=== PATIENT | female | born 1950 | race Asian ===

== ENCOUNTER → 2023-07-10 15:11 | Outpatient (REF) | payer MEDICARE, OTHER, SELFPAY | LOC: RAD 15:11 | PROVIDERS: ATTENDING PHYSICIAN Nuclear Medicine Nuclear Cardiology; FAMILY PHYSICIAN Family Medicine | DX: I48.0 Paroxysmal atrial fibrillation (principal) | CPT/HCPCS: 71046 ==

== ENCOUNTER → 2023-09-06 11:06 | Outpatient (REF) | payer MEDICARE, OTHER, SELFPAY | LOC: RAD 11:06 | PROVIDERS: ATTENDING PHYSICIAN Surgery Vascular Surgery; FAMILY PHYSICIAN Family Medicine | DX: I77.0 Arteriovenous fistula, acquired (principal) | CPT/HCPCS: 93990 ==

== ENCOUNTER → 2024-01-08 10:51 | Outpatient (REF) | payer MEDICARE, OTHER, SELFPAY | LOC: RAD 10:51 | PROVIDERS: ATTENDING PHYSICIAN Surgery Vascular Surgery; FAMILY PHYSICIAN Family Medicine | DX: I77.0 Arteriovenous fistula, acquired (principal) | CPT/HCPCS: 93990 ==

== ENCOUNTER 2024-02-07 06:06 | Day surgery (SDC) | payer MEDICARE, OTHER, SELFPAY ==
--- NOTE | 2024-01-31 08:25 | PTCARENOTE ---
Preop EKG scanned by office dated 11/15/[address] depression. Please see EKG in MAR from 03/09/23 noting history of that.
[2024-02-07] VITALS (8 sets, daily range): BP systolic 10–180; BP diastolic 54–67; BMI 28.0
[2024-02-07 06:54] LABS: Glucose - Point of Care 138 mg/dl (70-99)
[2024-02-07 07:03] LABS: APTT 32.7 Sec (23.4-35.0)
--- NOTE | 2024-02-07 07:09 | W.SUR.PREOP ---
Pre-Operative Surgical Note
-
I have examined this patient prior to the performance of the scheduled procedure.
The patient's condition is unchanged from the time of the current History and
Physical and the patient is able to undergo the scheduled procedure.
Offered human resources mgr services. Patient declined. Prefers her son to translate. Discussed with them likely prolonged bleeding after hemodialysis. Discussed left upper extremity fistulogram (she has had several in the past). Discussed procedure
again. Discussed risks including but limited to bleeding, infection, thrombotic complications. She understands all wishes to proceed.
[2024-02-07 07:16] LABS: INR 1.01; PT 13.3 Sec (11.4-14.6)
[2024-02-07 07:21] LABS: Hematocrit 34.4 % (37.0-47.0); Hemoglobin 11.9 g/dL (12.0-16.0); Mean Corp Hgb Conc. 34.6 g/dL (33.0-37.0); Mean Corpuscular Volume 92.5 fL (81.0-99.0); Mean Platelet Volume 10.2 fL (7.4-10.4); Platelet Count 129 10^3/uL (130-400); Red Blood Cell Count 3.72 10^6/uL (4.20-5.40); Red Cell Dist. Width 14.4 % (11.5-14.5); White Blood Cell Count 4.4 10^3/uL (4.8-10.8)
[2024-02-07] MEDS: NSS 500 IV (07:28)
[2024-02-07 07:40] LABS: Blood Urea Nitrogen 29 mg/dl (7-17); Calcium 9.1 mg/dl (8.4-10.2); Carbon Dioxide 32 mmol/L (22-30); Chloride 90 mmol/L (98-107); Estimated Creatinine Clearance 10 ml/min; Glucose 129 mg/dl (70-99); Potassium 3.8 mmol/L (3.5-5.1); Sodium 137 mmol/L (135-145); eGFR 10.27
--- NOTE | 2024-02-07 08:26 | W.SUR.POST ---
Surgical Immediate Post Op
Note
Pre Op Diagnosis: ESRD
Post Op Diagnosis: same
Procedure Performed: LUE fistulagram, central venogram, balloon angioplasty outflow vein edge stent stenosis
Primary Surgeon: Osvaldo
Anesthesia: local and sedation
Estimated Blood Loss: <2cc
Fluids: see anesthesia flow sheet
Drains/Shunts: none
Specimens/Cultures: none
Doppler/Duplex/Angio (Y/N): Y
Complications: none
Operative Findings: +thrill
[2024-02-07 08:52] LABS: Glucose - Point of Care 116 mg/dl (70-99)
--- NOTE | 2024-02-07 10:45 | OR.RPT ---
Operative Report
Operative Report
PROCEDURE DATE: 02/07/2024
Preoperative diagnosis:
1. End-stage renal disease on hemodialysis.
2. Prolonged bleeding after hemodialysis, concern for outflow vein stenosis.
Postoperative diagnosis: Same
Procedure:
1. Duplex assisted cannulation of left upper extremity fistula in a central facing direction.
2. Left upper extremity fistulogram and central venogram.
3. Balloon angioplasty of stent edge stenosis with 8 mm angioplasty balloon.
4. Supervision and interpretation.
Surgeon: Osvaldo
Records Management Assistant: None
Complications: None
Anesthesia: Local, sedation
Fluoroscopy:
2.4 min
11 mGy
2.69 Gy.cm2
Indications for procedure:
Prolonged bleeding after hemodialysis. Duplex demonstrated possible outflow/stent stenosis. Risk/benefits/alternatives of fistulogram were fully discussed. Patient understood all wish to proceed.
Description of procedure:
Patient was identified, brought to the operating room. Placed on the table in the supine position. After the adequate administration of anesthesia, the patient was prepped and draped in the standard surgical fashion. A standard preoperative
timeout was undertaken and everybody was in agreement with the plan.
Left upper extremity arteriovenous fistula outflow vein was punctured with a micropuncture kit in the distal upper arm just proximal antecubital fossa under direct duplex ultrasound guidance. A 5 Green[place]ic sheath was then advanced over a 0.035 inch
wire. Left upper extremity fistulogram and central venogram demonstrated patent left upper extremity fistula. As was obvious on exam, there was a large aneurysmal portion in the mid to distal upper arm. Remainder of the outflow vein was patent on
initial fistulogram with no stenosis. The stent appeared grossly patent. However, at this point I advanced a flopping of hydrophilic wire and then a glide catheter to the edge of the stent. Angiogram completed here demonstrated actually a severe
edge stenosis at the proximal edge of the stent. I therefore then used a flopping of hydrophilic wire to gain central venous access and then passed my catheter and exchanged for a 0.035 inch Storq wire. I then performed balloon angioplasty of the
stent and stent edge stenosis with an 8 mm angioplasty balloon (after upsizing to a 6 Green[place]ic sheath). Completion angiogram now demonstrated excellent result with no evidence of residual stenosis. I then withdrew my catheters and wires and
compressed the fistula outflow and performed a fistulogram to reflux contrast across the arterial anastomosis which demonstrated widely patent arterial anastomosis. At this point I was very satisfied. Wires and catheters had been withdrawn. A 4-0
Monocryl pursestring stitch was placed around the sheath entry site. This was tied down as the sheath was withdrawn. Manual pressure was also applied to the puncture site. Hemostasis was fully achieved.
The patient tolerated procedure well.
== END 2024-02-07 10:10 | disposition home or self-care (01) ==
LOC: CATH 06:06
PROVIDERS: ATTENDING PHYSICIAN Surgery Vascular Surgery; FAMILY PHYSICIAN Family Medicine; OTHER PHYSICIAN Nuclear Medicine Nuclear Cardiology
DX: T82.858A Stenosis of other vascular prosthetic devices, implants and grafts, initial encounter (principal); T82.838A Hemorrhage due to vascular prosthetic devices, implants and grafts, initial encounter; Y83.2 Surgical operation with anastomosis, bypass or graft as the cause of abnormal reaction of the patient, or of later complication, without mention of misadventure at the time of the procedure; I13.2 Hypertensive heart and chronic kidney disease with heart failure and with stage 5 chronic kidney disease, or end stage renal disease; E11.22 Type 2 diabetes mellitus with diabetic chronic kidney disease; N18.6 End stage renal disease; I50.32 Chronic diastolic (congestive) heart failure; Z99.2 Dependence on renal dialysis; Z79.4 Long term (current) use of insulin; Z79.82 Long term (current) use of aspirin; Z79.899 Other long term (current) drug therapy; Z79.890 Hormone replacement therapy
CPT/HCPCS: 36902; 76937; 80048; 82962; 85027; 85610; 85730; 86850; 86900; 86901; C1725; C1769; C1894; Q9967

== ENCOUNTER → 2024-04-24 13:59 | Outpatient (REF) | payer MEDICARE, OTHER, SELFPAY | LOC: RAD 13:59 | PROVIDERS: ATTENDING PHYSICIAN Family Medicine | DX: M25.569 Pain in unspecified knee (principal) | CPT/HCPCS: 73564 ==

== ENCOUNTER → 2024-06-05 14:55 | Outpatient (REF) | payer MEDICARE, OTHER, SELFPAY | LOC: RAD 14:55 | PROVIDERS: ATTENDING PHYSICIAN Family Medicine; FAMILY PHYSICIAN Family Medicine | DX: M25.569 Pain in unspecified knee (principal); R53.1 Weakness; M79.604 Pain in right leg; M79.605 Pain in left leg | CPT/HCPCS: 93925 ==

== ENCOUNTER 2024-08-08 06:48 | Inpatient (IN) | payer MEDICARE, OTHER, SELFPAY ==
[2024-08-07] VITALS (11 sets, daily range): BP systolic 164–186; BP diastolic 55–65; BMI 27.7; BMI 26.9
[2024-08-07 14:44] LABS: % Basophils 0.7 % (0-2); % Eosinophils 2.2 % (0-6); % Immature Granulocytes 0.4 % (0-0.5); % Lymphocytes 20.1 % (20.5-51.1); % Neutrophils 63.6 % (42.2-75.2); Absolute Eosinophils 0.1 10^3/uL (0-0.7); Absolute Lymphocytes 1.1 10^3/uL (1.2-3.4); Absolute Monocytes 0.7 10^3/uL (0.1-0.6); Absolute Neutrophils 3.5 10^3/uL (1.4-6.5); Hematocrit 21.4 % (37.0-47.0); Hemoglobin 7.3 g/dL (12.0-16.0); Mean Corp Hgb Conc. 34.1 g/dL (33.0-37.0); Mean Corpuscular Hgb 32.2 pg (27.0-31.0); Mean Corpuscular Volume 94.3 fL (81.0-99.0); Mean Platelet Volume 9.5 fL (7.4-10.4); Nucleated Red Blood Cells % 0 %; Platelet Count 166 10^3/uL (130-400); Red Blood Cell Count 2.27 10^6/uL (4.20-5.40); Red Cell Dist. Width 13.7 % (11.5-14.5); White Blood Cell Count 5.5 10^3/uL (4.8-10.8)
[2024-08-07 16:00] LABS: ALT (SGPT) 96 U/L (0-35); AST (SGOT) 80 U/L (14-36); Albumin 3.7 g/dl (3.5-5.0); Alkaline Phosphatase 155 U/L (38-126); Blood Urea Nitrogen 27 mg/dl (7-17); Calcium 8.6 mg/dl (8.4-10.2); Carbon Dioxide 33 mmol/L (22-30); Chloride 87 mmol/L (98-107); Glucose 186 mg/dl (70-99); Potassium 3.9 mmol/L (3.5-5.1); Sodium 129 mmol/L (135-145); Total Bilirubin 0.5 mg/dl (0.2-1.3); eGFR 9.47
--- NOTE | 2024-08-07 16:09 | ED.GENMED ---
History of Present Illness
<Gardenia Berkowitz PA-C - Last Filed: 08/07/24 19:17>
General
Chief Complaint: Abnormal Lab Value
Source: patient
Exam Limitations: none
Time Seen by Provider: 08/07/24 13:13
Nursing documentation reviewed up to this point in time: agreed with
History of Present Illness
History of Present Illness:
pt is a 73 y/o F with h/o afib, CHF, GI bleed, ESRD on HD m/w/f
2-3 weeks more weakness/fatigue per family who is translating
son stakes care of her
says she is pretty weak when she gets up
she is not SOB or having chest pain, leg swelling, fever/chills
she didn't eat muhc today
lasst dialyzed yesterday
had labs and resulted today with hg of 6.5 and [facility] wanted her to be transfused before she has dialysis tomorrow
pt here other than feelig tired has no complaints
no bleeding from anywhere, stool, urine (makes very little), gums, etc
no vomiting
Past History
<Gardenia Berkowitz PA-C - Last Filed: 08/07/24 19:17>
Past History
ED Past Medical History: Arrthythmia, IDDM, Renal failure, Hypothyroidism and Other (Anemia/hepatitis B)
ED Past Surgical History: Other
Patient has exhibited threatening behavior?: No
Social History
Tobacco: Non-smoker
Living: with family
Employment: Not employed
Family History
Family History: Other (Noncontributory)
Review of Systems
<Gardenia Berkowitz PA-C - Last Filed: 08/07/24 19:17>
Review of Systems
Allergies reviewed?: Yes
All Other Systems: Not applicable
Phy Exam
<Gardenia Berkowitz PA-C - Last Filed: 08/07/24 19:17>
Physical Exam
Physical Exam:
GENERAL: Alert , in no apparent distress
EYE: pupils equal and reactive, pale
NECK: Supple
ENT: o/p clr, mmm.
CARDIAC: Regular rate and rhythm . sublte murmur
LUNGS: Clear breath sounds bilaterally, no acute respiratory distress, no wheezes/rales/rhonchi
ABDOMEN: Soft, without focal tenderness, no r/g, no cvat, normal bowel sounds
HEME NEG LIGHT STOOL
NEUROLOGICAL: Alert and oriented, no focal neuro deficits
SKIN: Warm and dry, skin intact.
MUSCULOSKELETAL: No edema, well perfused. neg aster's sign
PSYCH: Normal and appropriate interaction.
Course
<Gardenia Berkowitz PA-C - Last Filed: 08/07/24 19:17>
Orders/Labs/Results
Orders:
Orders
08/07/24 14:34
Type And Crossmatch [Type+Screen] Urgent
Complete Blood Count/With Diff Urgent
Comprehensive Metabolic Panel Urgent
08/07/24 14:53
* Blood Bank Products Urgent
Blood Bank Products: *Packed RBC Leuko(PRBC's)
Quantity: 1
Transfuse Today: Yes
Reason: Anemia
08/07/24 14:54
Electrocardiogram (*1) Urgent
Reason for Study: Fatigue / Weakness
EKG- Treatment ONCE
08/07/24 16:06
US Abdomen Complete/Upper Urgent
Comment:
Reason For Exam: TRANSAMINITIS
08/07/24 16:45
COVID-19 Antigen Urgent
Source: Nasal Swab
Influenza A+B Rapid Molecular Urgent
GUERLINE Source: Nasal Swab
Specimen Description:
08/07/24 18:59
EKG [Electrocardiogram (*1)] Urgent
Reason for Study: Chest Pain
EKG- Treatment ONCE
Portable Chest Xray [CR Chest Portable - 1 View] Urgent
Comment:
Reason For Exam: chest pain
Reason Study Needs to be Portable: Unable to Transport
08/07/24 19:10
Troponin I Urgent
08/07/24 19:13
Furosemide [Lasix] 40 mg IV NOW STA
Abnormal Lab Results
08/07/24
14:34
RBC 2.27 L 10^6/uL
(4.20-5.40)
Hgb 7.3 L g/dL
(12.0-16.0)
Hct 21.4 L %
(37.0-47.0)
MCH 32.2 H pg
(27.0-31.0)
Absolute Lymphs (auto) 1.1 L 10^3/uL
(1.2-3.4)
Absolute Monos (auto) 0.7 H 10^3/uL
(0.1-0.6)
Lymphocytes % 20.1 L %
(20.5-51.1)
Monocytes % 13.0 H %
(1.7-9.3)
Sodium 129 L mmol/L
(135-145)
Chloride 87 L mmol/L
(98-107)
Carbon Dioxide 33 H mmol/L
(22-30)
BUN 27 H mg/dl
(7-17)
Creatinine 4.6 H* mg/dL
(0.6-1.0)
Glucose 186 H mg/dl
(70-99)
AST 80 H U/L
(14-36)
ALT 96 H U/L
(0-35)
Alkaline Phosphatase 155 H U/L
(38-126)
Crossmatch IS Only See Detail
08/07/24 14:34
08/07/24 14:34
Vital Signs
Initial and Last Documented VS:
Initial Vital Signs
Temp Pulse Resp BP Pulse Ox
98.1 F 64 17 164/64 100
08/07/24 12:19 08/07/24 12:19 08/07/24 12:19 08/07/24 12:19 08/07/24 12:19
Last Documented Vital Signs
Temp Pulse Resp BP Pulse Ox
98.4 F 75 16 173/57 94
08/07/24 18:22 08/07/24 18:22 08/07/24 18:22 08/07/24 18:22 08/07/24 18:22
<Jojo Thapa, DO - Last Filed: 08/07/24 19:22>
Orders/Labs/Results
Orders:
Orders
08/07/24 14:34
Type And Crossmatch [Type+Screen] Urgent
Complete Blood Count/With Diff Urgent
Comprehensive Metabolic Panel Urgent
08/07/24 14:53
* Blood Bank Products Urgent
Blood Bank Products: *Packed RBC Leuko(PRBC's)
Quantity: 1
Transfuse Today: Yes
Reason: Anemia
08/07/24 14:54
Electrocardiogram (*1) Urgent
Reason for Study: Fatigue / Weakness
EKG- Treatment ONCE
08/07/24 16:06
US Abdomen Complete/Upper Urgent
Comment:
Reason For Exam: TRANSAMINITIS
08/07/24 16:45
COVID-19 Antigen Urgent
Source: Nasal Swab
Influenza A+B Rapid Molecular Urgent
GUERLINE Source: Nasal Swab
Specimen Description:
08/07/24 18:59
EKG [Electrocardiogram (*1)] Urgent
Reason for Study: Chest Pain
EKG- Treatment ONCE
Portable Chest Xray [CR Chest Portable - 1 View] Urgent
Comment:
Reason For Exam: chest pain
Reason Study Needs to be Portable: Unable to Transport
08/07/24 19:10
Troponin I Urgent
08/07/24 19:13
Furosemide [Lasix] 40 mg IV NOW STA
Abnormal Lab Results
08/07/24
14:34
RBC 2.27 L 10^6/uL
(4.20-5.40)
Hgb 7.3 L g/dL
(12.0-16.0)
Hct 21.4 L %
(37.0-47.0)
MCH 32.2 H pg
(27.0-31.0)
Absolute Lymphs (auto) 1.1 L 10^3/uL
(1.2-3.4)
Absolute Monos (auto) 0.7 H 10^3/uL
(0.1-0.6)
Lymphocytes % 20.1 L %
(20.5-51.1)
Monocytes % 13.0 H %
(1.7-9.3)
Sodium 129 L mmol/L
(135-145)
Chloride 87 L mmol/L
(98-107)
Carbon Dioxide 33 H mmol/L
(22-30)
BUN 27 H mg/dl
(7-17)
Creatinine 4.6 H* mg/dL
(0.6-1.0)
Glucose 186 H mg/dl
(70-99)
AST 80 H U/L
(14-36)
ALT 96 H U/L
(0-35)
Alkaline Phosphatase 155 H U/L
(38-126)
Crossmatch IS Only See Detail
08/07/24 14:34
08/07/24 14:34
Vital Signs
Initial and Last Documented VS:
Initial Vital Signs
Temp Pulse Resp BP Pulse Ox
98.1 F 64 17 164/64 100
08/07/24 12:19 08/07/24 12:19 08/07/24 12:19 08/07/24 12:19 08/07/24 12:19
Last Documented Vital Signs
Temp Pulse Resp BP Pulse Ox
98.4 F 75 16 173/57 94
08/07/24 18:22 08/07/24 18:22 08/07/24 18:22 08/07/24 18:22 08/07/24 18:22
<Gardenia Berkowitz PA-C - Last Filed: 08/07/24 19:17>
MDM/Problems Addressed
Differential Diagnosis Includes:
symptmatic anemia, anemia of chronic disease, GI bleed
MDM/Problems Addressed:
Ruthann Smith Ou 73 y/o F
ESRD on HD m/w/f [facility]
outpatient labs showed hg 6.5 from yesterday's dialysis
called today to be transfused before dialysis tomorrow
pt has had fatigue x 2 weeks
no bleeding
previously transfused remotely once maybe according to son
REPEAT HG 7.3 BUT USUALLY RUNS 9-10s; has been 8s before
she is sypmtomatic
i spoke with dr. calles nephrology
recomends drew marcello 1 unit today and discharge
pt is heme neg
bt her lfts are slightly elevated
US neg
no GI complaints other than lack of appetite
could be viral
flu and covid neg
will transfuse and likelyd/c home.
during transfusion, lungs clear
pt has no complaints
wants to go home
will d/c afte rtransfusion
1914
while getting the unit (not even half yet) she went into pulm edema it looks like, complained of SOB; pulse ox to 88%
stable on 2L
crackles
dr calles aware, she will be dialyzed tomorrow; qtc is long on ekg, i sent a trop just now
ed attending aware
qtc long on ekg
ED Attending Note
<Gardenia Berkowitz PA-C - Last Filed: 08/07/24 19:17>
-
Portions of this chart may have been created with voice recognition software.� Occasional wrong word or��sound alike� substitutions may have occurred due to the inherent limitations of voice recognition software.
<Jojo Thapa DO - Last Filed: 08/07/24 19:22>
ED Attending Note
Patient seen and examined by attending physician: Yes
I performed the substantive portion of visit, reviewed & personally made and approve the management plan that is documented in note by myself or STACI.: Yes
I performed a history and physical exam of patient and discussed management with resident, I reviewed resident's note and agree with documented findings and plan of care.: Yes
ED Attending Note:
73-year-old female with history of end-stage renal disease with dialysis MWF presenting to the emergency department for concern of low hemoglobin. Patient was last dialyzed yesterday. Language barrier, however family translating at bedside, notes
some fatigue and weakness in the past few weeks. Patient had laboratory analysis, resulted yesterday with low hemoglobin, sent to the ER for potential transfusion. Patient initially hemodynamically stable, seen by STACI. Unremarkable initial
cardiac and pulmonary exam. Labs obtained, with a hemoglobin of 7.3. In discussion with nephrology, recommending transfusion of 1 unit with discharge home for dialysis tomorrow. He was consented for blood.
While blood transfusing, patient became acutely short of breath with increased work of breathing and crackles. Chest x-ray obtained, concern for pulmonary edema. Infusion stopped. Patient placed on supplemental O2 with improvement of saturations.
Patient does still make some urine, so starting Lasix. At this time plan for admission for respiratory monitoring and dialysis. Nephrology made aware.
Discharge Plan
Departure
Patient Disposition: Admit
Date of Disposition: 08/07/24
Time of Disposition: 19:13
Admit to: IMU
Presentation/result/management discussed w/ accepting MD/DO: Hospitalist
Condition: Fair
Covid-19: Not Applicable
Discharge Problem:
Anemia, Pulmonary edema
Instructions: Normocytic Normochromic Anemia (DC)
Prescriptions:
No Action
aspirin 81 MG tablet,delayed release (DR/EC)
81 mg PO DAILY
simvastatin 20 MG tablet
20 mg PO HS
cholecalciferol (vitamin D3) 1,000 UNITS tablet
1,000 units PO DAILY 30 Days Qty: 30 0RF
insulin glargine U-300 conc [Toujeo SoloStar U-300 Insulin] 300 UNIT/ML insulin pen
6 unit SC HSPRN PRN (Reason: Diabetes)
tenofovir disoproxil fumarate 300 MG tablet
300 mg PO WEEKLY
Rx Instructions:
Q Sunday
omeprazole 40 MG capsule,delayed release(DR/EC)
40 mg PO DAILY
gabapentin 100 MG capsule
100 mg PO MOWEFR
Patient Comments:
WITH DIALYSIS
lanthanum 500 mg Tablet,Chewable
500 mg PO AC
levothyroxine 75 mcg Tablet
75 mcg PO DAILY
amiodarone [Pacerone] 200 mg Tablet
200 mg PO DAILY Qty: 30 0RF
acetaminophen 325 mg Tablet
650 mg PO Q6HPRN PRN (Reason: mild pain/ fever>100.5F) Qty: 10 0RF
carvedilol 6.25 mg Tablet
6.25 mg PO BID
amlodipine 2.5 mg Tablet
2.5 mg PO HS
docusate sodium 100 mg capsule
100 mg PO PRN PRN (Reason: constipation)
nortriptyline 10 mg Capsule
10 mg PO HS
fluticasone propionate 50 mcg/actuation [place],Suspension
1 spray INTRANASAL DAILYPRN PRN (Reason: allergies)
insulin aspart U-100 [Novolog FlexPen U-100 Insulin] 300 UNITS/3 ML insulin pen
3 - 5 sliding scale dose SC MEALS
artificial tear(xdkbd-ewb-pbw) 0.1-0.3-0.2 % Drops
1 drp OPHTHALMIC (EYE) DAILYPRN PRN (Reason: dry eyes)
Referrals:
Anselmo Pathak MD [Family Provider] - Follow up in 2-3 days
Activity Restrictions/Additional Instructions:
YOU WERE GIVEN A UNIT OF BLOOD TODAY
YOUR LIVER ENZYMES WERE ELEVATED BUT YOUR ULTRASOUND WAS NEGATIVE
YOU WERE NOT BLEEDING FROM ANYWHERE
THE ANEMIA IS PROBABLY BECAUSE OF YOUR KIDNEY FAILURE
RETURN FOR ANY CONCERNS
MAKE SURE TO HAVE DIALYSIS TOMORROW
Interventions
Interventions:
*Risk Screen - Suicide Last Done: 08/07/24 12:19
Discharge Date and Time
Print Language: German
[2024-08-07 17:24] LABS: COVID-19 Antigen Negative (Negative)
--- NOTE | 2024-08-07 19:44 | HPS.HSE ---
Addendum entered and electronically signed by Anders Barba MD 08/07/24 19:47:
Correction- patient is only on 6 units Lantus as needed. Will start insulin sliding scale.
Original Note:
Family Physician
-
Family Physician: Anselmo Pathak
Chief Complaint
-
anemia
History of Present Illness
73-year-old female past medical history of chronic anemia, ESRD on hemodialysis Sunday, Sunday, Sunday, paroxysmal atrial fibrillation, chronic HFpEF, diabetes, hypertension, chronic HBV,, hypothyroidism, GERD, presenting with weakness and
fatigue for past few weeks. No shortness of breath or chest pain. No leg swelling. No fevers or chills. She last received dialysis yesterday. No blood in the stool or black stool.
Patient was recommended to get 1 unit of blood transfusion and discharged home for dialysis tomorrow but while getting the unit she developed pulmonary edema.
No weight gain or swelling in the legs.
Medical History
Past Medical History
Past Medical History: Reports Other (chronic anemia, ESRD on hemodialysis Sunday, Sunday, Sunday, paroxysmal atrial fibrillation, chronic HFpEF, diabetes, hypertension, chronic HBV,, hypothyroidism, GERD)
Past Surgical History: Reports None
Social History
Tobacco: Non-smoker
Alcohol: None
Drug: None
Family History
Family History: Not pertinent
Allergies / Home Medications
Allergies reflects when Allergies were last updated in [employer]
Home Medications with original date entered in [employer]
Allergy/Medication List:
Allergies
Allergy/AdvReac Type Severity Reaction Status Date / Time
No Known Allergies Allergy Verified 08/07/24 12:18
Home Medications
aspirin 81 mg tablet,delayed release 81 mg PO DAILY Blood Clot Prevention/Tx 07/23/17
simvastatin 20 mg tablet 20 mg PO HS High Cholesterol 07/23/17
cholecalciferol (vitamin D3) 25 mcg (1,000 unit) tablet 1,000 units PO DAILY 30 days ##30 08/04/17
insulin glargine U-300 conc 300 unit/mL (1.5 mL) subcutaneous pen (Toujeo SoloStar U-300 Insulin) 6 unit SC HSPRN PRN Diabetes 08/16/17
omeprazole 40 mg capsule,delayed release 40 mg PO DAILY Gastrointestinal Issue 03/29/18
tenofovir disoproxil fumarate 300 mg tablet 300 mg PO WEEKLY Hepatitis B 03/29/18
gabapentin 100 mg capsule 100 mg PO MOWEFR Neurological Condition 01/02/19
lanthanum 500 mg chewable tablet 500 mg PO AC Kidney Disease 01/29/23
levothyroxine 75 mcg tablet 75 mcg PO DAILY Thyroid 01/31/23
amiodarone 200 mg tablet (Pacerone) 200 mg PO DAILY #30 tabs 02/08/23
acetaminophen 325 mg tablet 650 mg (2 x 325 mg) PO Q6HPRN PRN mild pain/ fever>100.5F #10 tabs 02/09/23
amlodipine 2.5 mg tablet 2.5 mg PO HS 02/06/24
carvedilol 6.25 mg tablet 6.25 mg PO BID 02/06/24
docusate sodium 100 mg capsule 100 mg PO PRN PRN constipation 02/06/24
artificial tears(heojezs-nkjedwxb-atvtvla) 0.1 %-0.3 %-0.2 % eye drops 1 drp ophthalmic (eye) DAILYPRN PRN dry eyes 08/07/24
fluticasone propionate 50 mcg/actuation nasal spray,suspension 1 spray intranasal DAILYPRN PRN allergies 08/07/24
insulin aspart U-100 100 unit/mL (3 mL) subcutaneous pen (Novolog FlexPen U-100 Insulin aspart) 3 - 5 sliding scale dose SC MEALS Diabetes 08/07/24
nortriptyline 10 mg capsule 10 mg PO HS 08/07/24
Review of Systems
-
History Source: Patient
A 12 point ROS was completed and negative except as noted: Yes
Constitutional: Reports No Symptoms
EENT: Reports No Symptoms
Respiratory: Reports No Symptoms
Cardiac: Reports No Symptoms
Abdomen/GI: Reports No Symptoms
: Reports No Symptoms
Musculoskeletal: Reports No Symptoms
Skin: Reports No Symptoms
Neurological: Reports No Symptoms
Endocrine: Reports No Symptoms
Hematologic/Lymphatic: Reports No Symptoms
Psych: Reports No Symptoms
Physical Exam
Vital Signs
Vital Signs
Temp Pulse Resp BP Pulse Ox
98.4 F 75 16 173/57 94
08/07/24 18:22 08/07/24 18:22 08/07/24 18:22 08/07/24 18:22 08/07/24 18:22
Physical Exam
General: Well Developed, Well Nourished and No Apparent Distress
HEENT: NormoCephalic, Moist mucous membranes and Atraumatic
Respiratory: Clear
Cardiac: S1/S2 and Regular Rhythm; No Murmur or Rub
GI: Soft, Non Tender, Non Distended and Normal Bowel Sounds; No Organomegaly
Rectal: Deferred by Provider
Musculoskeletal: No Clubbing, No Cyanosis and No Edema
Skin: No Rash
Neuro: Nonfocal/grossly intact
Laboratory Results
-
08/07/24 14:34
08/07/24 14:34
Laboratory Results
Total Bilirubin 0.5 mg/dl (0.2-1.3) 08/07/24 14:34
AST 80 U/L (14-36) H 08/07/24 14:34
ALT 96 U/L (0-35) H 08/07/24 14:34
Alkaline Phosphatase 155 U/L (38-126) H 08/07/24 14:34
Data Reviewed
-
Lab Data: Labs Reviewed by me
Old Records: Reviewed
Impression/Plan
-
IMPRESSION:
PLAN:
# Acute on chronic symptomatic normocytic anemia secondary to ESRD
-Hemoglobin 6.5 yesterday
-Hemoglobin of 7.3 from 11.9 previously
-1 unit of blood and nephrology recommended discharge for dialysis tomorrow however she developed pulmonary edema
# Acute on chronic HFpEF exacerbation/volume overload secondary to ESRD secondary to blood transfusion
-Chest x-ray shows pulmonary edema, report pending
-40 IV Lasix given
-Nephrology to dialyze tomorrow
-Continue Coreg
# Transaminitis secondary to hepatic venous congestion
-Continue to monitor
ESRD on hemodialysis Sunday, Sunday, Sunday
-Patient received dialysis yesterday
Paroxysmal atrial fibrillation
-Continue amiodarone
-Continue aspirin
Essential hypertension
-Continue amlodipine
Type 2 diabetes
-Continue NovoLog
-Continue Lantus 60 units
Possible diabetic neuropathy
-Continue gabapentin, nortriptyline
Chronic HBV
-Continue tenofovir
Hypothyroidism
-Continue levothyroxine
GERD
-Continue omeprazole
Full code
DVT prophylaxis�SCDs
Renal diet
[2024-08-07 19:45] LABS: Troponin I 0.038 ng/ml
[2024-08-07] MEDS: LASIX 40 MG IV (19:48)
--- NOTE | 2024-08-07 21:30 | PTCARENOTE ---
Pt arrived to unit from ED via stretcher. Patient pulled over to bed by hospital staff. Patient's son in room translating for patient. Patient A&Ox3. Oriented to unit. Call light within reach. Care ongoing.
[2024-08-07 21:56] LABS: Glucose - Point of Care 159 mg/dl (70-99)
[2024-08-07] MEDS: PAMELOR 10 MG PO (22:11)
[2024-08-07] MEDS: NORVASC 2.5 MG PO (22:12)
[2024-08-07] MEDS: LIPITOR 10 MG PO (22:12)
[2024-08-07] MEDS: COREG 6.25 MG PO (22:12)
[2024-08-07] MEDS: LANTUS 0.05 UNITS SC (22:13)
[2024-08-08] VITALS (10 sets, daily range): BP systolic 160–187; BP diastolic 57–69; PULSE 65–67; O2SAT 99
[2024-08-08] MEDS: SYNTHROID 75 MCG PO (05:52)
[2024-08-08 06:33] LABS: % Basophils 0.8 % (0-2); % Eosinophils 1.7 % (0-6); % Immature Granulocytes 0.3 % (0-0.5); % Lymphocytes 16.1 % (20.5-51.1); % Monocytes 10.9 % (1.7-9.3); % Neutrophils 70.2 % (42.2-75.2); Absolute Basophils 0.1 10^3/uL (0-0.2); Absolute Eosinophils 0.1 10^3/uL (0-0.7); Absolute Lymphocytes 1.2 10^3/uL (1.2-3.4); Absolute Monocytes 0.8 10^3/uL (0.1-0.6); Hemoglobin 7.2 g/dL (12.0-16.0); Mean Corp Hgb Conc. 34.3 g/dL (33.0-37.0); Mean Corpuscular Volume 90.5 fL (81.0-99.0); Mean Platelet Volume 9.9 fL (7.4-10.4); Nucleated Red Blood Cells % 0 %; Platelet Count 161 10^3/uL (130-400); Red Blood Cell Count 2.32 10^6/uL (4.20-5.40); Red Cell Dist. Width 14.7 % (11.5-14.5); White Blood Cell Count 7.2 10^3/uL (4.8-10.8)
[2024-08-08 06:48] LABS: ALT (SGPT) 73 U/L (0-35); AST (SGOT) 57 U/L (14-36); Albumin 3.4 g/dl (3.5-5.0); Alkaline Phosphatase 123 U/L (38-126); Blood Urea Nitrogen 36 mg/dl (7-17); Calcium 8.7 mg/dl (8.4-10.2); Carbon Dioxide 30 mmol/L (22-30); Chloride 90 mmol/L (98-107); Estimated Creatinine Clearance 7 ml/min; Glucose 101 mg/dl (70-99); Sodium 130 mmol/L (135-145); Total Bilirubin 0.7 mg/dl (0.2-1.3); Total Protein 6.4 g/dl (6.3-8.2); eGFR 7.03
[2024-08-08 07:27] LABS: Glucose - Point of Care 116 mg/dl (70-99)
[2024-08-08] MEDS: FOSRENOL 500 MG PO (09:48)
[2024-08-08] MEDS: PROTONIX 40 MG PO (09:49)
[2024-08-08] MEDS: ASPIR LOW (ENTERIC COATED) 81 MG PO (09:49)
[2024-08-08] MEDS: VITAMIN D3 (cholecalciferol) 25 MCG PO (09:49)
[2024-08-08] MEDS: COREG 6.25 MG PO (09:49)
[2024-08-08] MEDS: PACERONE 200 MG PO (09:49)
--- NOTE | 2024-08-08 09:49 | W.CON.NEPH ---
Consultation
-
Date/Time Consultation Requested: 08/07/242109
Date/Time Consultation Performed: 08/08/24929
Requesting Provider: Preston Willard
Performing Provider: eMlissa Ibanez
Reason for Consultation: ESRD
Medical History
-
Chief Complaint: Anemia
History of Present Illness:
72-year-old female who has a history of ESRD on dialysis Sunday, Sunday, Sunday at [facility] through left upper extremity AV fistula,type 2 diabetes, non insulin dependent, DCHF, paroxysmal AFib on aspirin and amiodarone,
possible diabetic neuropathy on gabapentin, hyperphosphatemia on lanthanum , history of hepatitis B on tenofovir, who was brought into the hospital presenting with weakness and fatigue for past few weeks. No shortness of breath or chest pain. No
leg swelling. No fevers or chills. She last received dialysis Sunday and labs noted hb low 6.5 hence recommended to come to hospital . No blood in the stool or black stool.
SHe received 1 unit of blood transfusion however while getting the unit she developed pulmonary edema. She on 2lit O2. NO other complaints.
Patient is an female, does not speak Nepalese. History is very limited. Most of the history is obtained through the son who is at bedside. According to the family diet not always controlled.
Past Medical History
1. ESRD.
2. AFib.
3. Diastolic CHF.
4. Left upper extremity brachiocephalic AV fistula with a prior angioplasty.02/2024
5. Type 2 diabetes, insulin dependent.
6. Neuropathy.
7. Hypothyroidism.
8. Hyperlipidemia.
9. History of hepatitis B on tenofovir.
10. Hyponatremia.
11. Hyperphosphatemia.
12. Anemia of CKD.
13. History of GI bleeding.
Social History
No smoking or alcohol. Lives with her son.
Tobacco: Non-Smoker
Alcohol: None
Drug: None
Living: With Family
Family History
Daughter has history of kidney disease with a
transplant.
Allergies / Home Medications
Allergy/AdvReac Type Severity Reaction Status Date / Time
No Known Allergies Allergy Verified 08/07/24 12:18
�Medication �Instructions �Recorded �Confirmed �Type
aspirin 81 mg tablet,delayed 81 mg PO DAILY Blood Clot 07/23/17 08/07/24 History
release Prevention/Tx
simvastatin 20 mg tablet 20 mg PO HS High Cholesterol 07/23/17 08/07/24 History
cholecalciferol (vitamin D3) 25 1,000 units PO DAILY 30 days ##30 08/04/17 08/07/24 Rx
mcg (1,000 unit) tablet
insulin glargine U-300 conc 300 6 unit SC HSPRN PRN Diabetes 08/16/17 08/07/24 History
unit/mL (1.5 mL) subcutaneous pen
(Toujeo SoloStar U-300 Insulin)
omeprazole 40 mg capsule,delayed 40 mg PO DAILY Gastrointestinal 03/29/18 08/07/24 History
release Issue
tenofovir disoproxil fumarate 300 300 mg PO WEEKLY Hepatitis B 03/29/18 08/07/24 History
mg tablet
gabapentin 100 mg capsule 100 mg PO MOWEFR Neurological 01/02/19 08/07/24 History
Condition
lanthanum 500 mg chewable tablet 500 mg PO AC Kidney Disease 01/29/23 08/07/24 History
levothyroxine 75 mcg tablet 75 mcg PO DAILY Thyroid 01/31/23 08/07/24 History
amiodarone 200 mg tablet (Pacerone) 200 mg PO DAILY #30 tabs 02/08/23 08/07/24 Rx
acetaminophen 325 mg tablet 650 mg (2 x 325 mg) PO Q6HPRN PRN 02/09/23 08/07/24 Rx
mild pain/ fever>100.5F #10 tabs
amlodipine 2.5 mg tablet 2.5 mg PO HS Blood Pressure 02/06/24 08/07/24 History
carvedilol 6.25 mg tablet 6.25 mg PO BID Blood Pressure 02/06/24 08/07/24 History
docusate sodium 100 mg capsule 100 mg PO PRN PRN constipation 02/06/24 08/07/24 History
artificial 1 drp ophthalmic (eye) DAILYPRN 08/07/24 08/07/24 History
tears(ilxjytr-iqinrzml-opjmryd) PRN dry eyes
0.1 %-0.3 %-0.2 % eye drops
fluticasone propionate 50 1 spray intranasal DAILYPRN PRN 08/07/24 08/07/24 History
mcg/actuation nasal allergies
spray,suspension
insulin aspart U-100 100 unit/mL 3 - 5 sliding scale dose SC MEALS 08/07/24 08/07/24 History
(3 mL) subcutaneous pen (Novolog Diabetes
FlexPen U-100 Insulin aspart)
nortriptyline 10 mg capsule 10 mg PO HS depression/sleep 08/07/24 08/07/24 History
Review of Systems
-
limited due to language barrier
Unable to obtain full review of systems at this time due to: Language Barrier
Physical Exam
Vital Signs
Vital Signs
Temp Pulse Resp BP Pulse Ox
97.8 F 66 17 168/60 98
08/08/24 07:36 08/08/24 07:36 08/08/24 07:36 08/08/24 07:36 08/08/24 07:36
Lab Results
WBC 7.2 10^3/uL (4.8-10.8) 08/08/24 05:32
RBC 2.32 10^6/uL (4.20-5.40) L 08/08/24 05:32
Hgb 7.2 g/dL (12.0-16.0) L 08/08/24 05:32
Hct 21.0 % (37.0-47.0) L 08/08/24 05:32
Plt Count 161 10^3/uL (130-400) 08/08/24 05:32
Sodium 130 mmol/L (135-145) L 08/08/24 05:32
Potassium 4.0 mmol/L (3.5-5.1) 08/08/24 05:32
Chloride 90 mmol/L (98-107) L 08/08/24 05:32
Carbon Dioxide 30 mmol/L (22-30) 08/08/24 05:32
BUN 36 mg/dl (7-17) H 08/08/24 05:32
Creatinine 5.9 mg/dL (0.6-1.0) H* 08/08/24 05:32
eGFR 7.03 08/08/24 05:32
Glucose 101 mg/dl (70-99) H 08/08/24 05:32
Calcium 8.7 mg/dl (8.4-10.2) 08/08/24 05:32
Albumin 3.4 g/dl (3.5-5.0) L 08/08/24 05:32
Physical Exam
General: Awake, Alert, No Distress and Nontoxic
HEENT: EOMI, Anicteric and Facial Symmetry
Respiratory: Crackels, Normal Excursion and Nonlabored Respirations
Cardiac: S1/S2 and Regular Rate/Rhythm
Breast: Deferred by me
Abdomen: Soft, Nontender and Nondistended
Musculoskeletal: No Cyanosis and No Edema
Skin: No Rash and Warm
Neuro: Nonfocal/Grossly Intact
Psych: Insight/judgement good and Appropriate
Data Reviewed
-
Radiology: Report Reviewed by me and Discussed with Family
Labs: Labs Reviewed by me and Discussed with Family
Assessment/Plan
-
IMP:
Acute on chronic symptomatic normocytic anemia
Acute on chronic HFpEF exacerbation/volume overload secondary to ESRD secondary to blood transfusion
Transaminitis
ESRD on hemodialysis Sunday, Sunday, Sunday, daly,
left UE AVF, angipolasty 02/2024
Paroxysmal atrial fibrillation
Essential hypertension
Type 2 diabetes
Possible diabetic neuropathy
Chronic HBV
Hypothyroidism
GERD
Hyponatremia
Plan:
a/w anemia , s/p PRBC but now pulm edema post
will arrange HD today
possible can arrange for PRBC during , defer to PCP
no clear active bleeding noted
Bp stable
resume phos binders
renal diet and FR
d/w son at bedside
[2024-08-08] MEDS: NEURONTIN 100 MG PO (09:50)
[2024-08-08 10:09] LABS: Glycohemoglobin (HgbA1c) 6.9 % (4.0-5.6)
--- NOTE | 2024-08-08 10:38 | CM ---
Addendum entered by Carolina Madison 08/08/24 15:35:
[facility] has accepted patient for start of care date Sunday. Please document in careport to confirm discharge or call [phone].
Original Note:
Patient seen at bedside with patient son present for translation. Patient son states that they live in a 2 story home with no steps. Patient is on the first floor primarily. Patient has HD with Titi at [facility] facility M,W,F. Patient for
HD today at noon. Patient has had VN from [facility] in the past and if appropriate would appreciate referal for PT/OT. CM will continue to follow for discharge planning needs.
Plan; home with family, and VN; HD
--- NOTE | 2024-08-08 11:13 | W.PN.HOSP.TC ---
Addendum entered and electronically signed by Geneva Jay MD 08/08/24 18:04:
Addendum
Patient received dialysis and second unit of blood transfusion without problem or complaints. No hypoxia or shortness of breath.
I was called to discharge patient as family insisted upon discharge and did not want to stay another night in the hospital and felt that patient was stable to go
Discussed with nursing staff
Total discharge time spent to see the patient, examine the patient, review data and lab results, discuss discharge plan with patient and nursing staff around 65 minutes
Original Note:
Today's Communication/Plan
-
d/w blind hanger, give another one unit of blood during HD
Assessment / Plan
Assessment / Plan
Physical Exam/encounter through language line and son at the bedside
General: No Apparent Distress
HEENT: NormoCephalic, Moist mucous membranes and Atraumatic
Respiratory: Clear and no wheezes
Cardiac: S1/S2 , positive murmur
GI: Soft, Non Tender,
Rectal: No bleeding
Musculoskeletal: No Edema
Skin: No Rash
Neuro: She is awake, oriented to self and surroundings. Answer questions through the language line. She followed commands
# Acute on chronic anemia secondary to ESRD
-Hemoglobin around 7
s/p 1 unit of blood
d/w nephrology recommended another unit today
# Acute on chronic HFpEF exacerbation/volume overload secondary to ESRD secondary to blood transfusion
no sob
Patient denies shortness of breath or chest pain. She did not know why she was in the hospital. According to family/son, reported weakness at home.
-40 IV Lasix given
-Nephrology to dialyze
-Continue Coreg
# Transaminitis secondary to hepatic venous congestion
-Continue to monitor
ESRD on hemodialysis Sunday, Sunday, Sunday
-Patient received dialysis
Paroxysmal atrial fibrillation
-Continue amiodarone
-Continue aspirin
Essential hypertension
-Continue amlodipine
Type 2 diabetes
-Continue NovoLog
-Continue Lantus 6 units
Possible diabetic neuropathy
-Continue gabapentin, nortriptyline
Chronic HBV
-Continue tenofovir
Hypothyroidism
-Continue levothyroxine
GERD
-Continue omeprazole
Full code
DVT prophylaxis�SCDs
Renal diet
Total time spent to see the patient, examine the patient, review data and lab results, discuss treatment plan with patient and nursing staff around 55 minutes
Anticipated Discharge: 24 - 48 hours
Subjective/Interval History
-
Date of Service: August 08, 2024
No chest pain
No abdominal pain
Objective Data
-
Labs:
Laboratory Results
08/08/24
05:32
WBC 7.2
Hgb 7.2 L
Hct 21.0 L
Plt Count 161
Sodium 130 L
Potassium 4.0
Chloride 90 L
Carbon Dioxide 30
BUN 36 H
Creatinine 5.9 H*
Glucose 101 H
Calcium 8.7
Total Bilirubin 0.7
AST 57 H
ALT 73 H
Alkaline Phosphatase 123
Vital Signs:
Vital Signs
Temp Pulse Resp BP Pulse Ox
97.8 F 66 17 168/60 98
08/08/24 07:36 08/08/24 07:36 08/08/24 07:36 08/08/24 07:36 08/08/24 07:36
I&O
08/07/24 08/08/24 08/09/24
06:59 06:59 06:59
Intake Total 175 / 175
Balance 175 / 175
[2024-08-08 11:43] LABS: Glucose - Point of Care 146 mg/dl (70-99)
[2024-08-08] MEDS: HEPARIN 500 UNITS IV ×2 (13:10→14:10)
[2024-08-08] MEDS: RETACRIT 10000 UNITS IV (14:37)
[2024-08-08] MEDS: FOSRENOL PO ×2 (15:14→17:44)
[2024-08-08 16:31] LABS: Glucose - Point of Care 109 mg/dl (70-99)
--- NOTE | 2024-08-08 16:31 | W.PN.NEPH.HD ---
Assessment
-
pt seen during HD
vitals stable
AVF functions well
PRBC during HD
likely d/c post HD
Progress Note - Hemodialysis
-
Date of Service: August 08, 2024
Duration: 30 minutes and 3 hours
Potassium Bath: 2
Calcium Bath: 2.5
Opti-Dialyzer: 160
Ultrafiltration: Other (2.5-3.5kg)
Blood Flow: 400
Dialysate Flow: 600
Heparin: yesx2
EPO: 48160
--- NOTE | 2024-08-08 17:59 | W.DCSUMMARY ---
Discharge Summary
Discharge Data
Date of Admission: 08/08/24
Date of Discharge: 08/08/24
-
Pending Results: No
Hospital Course
73 years old female was brought into the hospital after an outpatient test that showed hemoglobin around 6.5. Family reported weakness for a week. Patient (using language line) did not have any complaints. Patient was evaluated by environmental consultant.
She received total of 2 units of blood transfusion. Patient developed pulmonary congestion/edema after blood transfusion and she received an additional hemodialysis on 08/07. She received her regular hemodialysis on Tuesday 08/08 with no
complications. Patient did not have history of GI bleeding with no rectal bleeding or melena. She remained hemodynamically stable was discharged in a stable condition. Her hemoglobin went up to 7.2. Family did not want to stay another day to
recheck her hemoglobin after second transfusion. Patient will have blood work in outpatient setting.
Discharge Plan
-
Patient Disposition: Home (Routine Discharge)
Discharge Diagnosis/Procedures: Acute on chronic anemia of chronic disease status post transfusion of 2 units. You received hemodialysis in the hospital and you were seen by environmental consultant. Repeat blood work in outpatient setting
Additional Diets: Continue your usual renal diet with fluid restriction
Blood Work: CBC in next dialysis
Instructions: *PCP/Other Genetic Scientist Heart Failure Instructions
Referrals:
Anselmo Pathak MD [Family Provider] -
Prescriptions:
Continued
aspirin 81 MG tablet,delayed release (DR/EC)
81 mg PO DAILY
simvastatin 20 MG tablet
20 mg PO HS
cholecalciferol (vitamin D3) 1,000 UNITS tablet
1,000 units PO DAILY 30 Days Qty: 30 0RF
insulin glargine U-300 conc [Toujeo SoloStar U-300 Insulin] 300 UNIT/ML insulin pen
6 unit SC HSPRN PRN (Reason: Diabetes)
tenofovir disoproxil fumarate 300 MG tablet
300 mg PO WEEKLY
Rx Instructions:
Q Sunday
omeprazole 40 MG capsule,delayed release(DR/EC)
40 mg PO DAILY
gabapentin 100 MG capsule
100 mg PO MOWE
Patient Comments:
WITH DIALYSIS
lanthanum 500 mg Tablet,Chewable
500 mg PO AC
levothyroxine 75 mcg Tablet
75 mcg PO DAILY
amiodarone [Pacerone] 200 mg Tablet
200 mg PO DAILY Qty: 30 0RF
acetaminophen 325 mg Tablet
650 mg PO Q6HPRN PRN (Reason: mild pain/ fever>100.5F) Qty: 10 0RF
carvedilol 6.25 mg Tablet
6.25 mg PO BID
amlodipine 2.5 mg Tablet
2.5 mg PO HS
docusate sodium 100 mg capsule
100 mg PO PRN PRN (Reason: constipation)
nortriptyline 10 mg Capsule
10 mg PO HS
fluticasone propionate 50 mcg/actuation [place],Suspension
1 spray INTRANASAL DAILYPRN PRN (Reason: allergies)
insulin aspart U-100 [Novolog FlexPen U-100 Insulin] 300 UNITS/3 ML insulin pen
3 - 5 sliding scale dose SC MEALS
artificial tear(byrho-cxf-ext) 0.1-0.3-0.2 % Drops
1 drp OPHTHALMIC (EYE) DAILYPRN PRN (Reason: dry eyes)
Discharge Orders:
Discharge Patient (As Directed); Ordered 08/08/24
Ordered By: Geneva Jay
Discharge Date and Time
Print Language: Kyrgyz
== END 2024-08-08 18:52 | disposition home or self-care (01) | DRG 698 ==
LOC: 3 WEST ACU 06:48
PROVIDERS: Physician Assistant; ADMITTING PHYSICIAN Hospitalist; ATTENDING PHYSICIAN Internal Medicine; EMERGENCY PHYSICIAN Student in an Organized Health Care Education/Training Program; FAMILY PHYSICIAN Family Medicine; OTHER PHYSICIAN Internal Medicine
PROC: 30233N1 Transfusion of Nonautologous Red Blood Cells into Peripheral Vein, Percutaneous Approach (ICD-10-PCS; 2024-08-07)
PROC: 5A1D70Z Performance of Urinary Filtration, Intermittent, Less than 6 Hours Per Day (ICD-10-PCS; 2024-08-08)
DX: E11.22 Type 2 diabetes mellitus with diabetic chronic kidney disease (principal); I50.33 Acute on chronic diastolic (congestive) heart failure; I13.2 Hypertensive heart and chronic kidney disease with heart failure and with stage 5 chronic kidney disease, or end stage renal disease; B18.1 Chronic viral hepatitis B without delta-agent; E87.1 Hypo-osmolality and hyponatremia; N18.6 End stage renal disease; D63.1 Anemia in chronic kidney disease; Z99.2 Dependence on renal dialysis; Z11.52 Encounter for screening for COVID-19; I48.0 Paroxysmal atrial fibrillation; E11.40 Type 2 diabetes mellitus with diabetic neuropathy, unspecified; E03.9 Hypothyroidism, unspecified; K21.9 Gastro-esophageal reflux disease without esophagitis; Z79.82 Long term (current) use of aspirin; Z60.3 Acculturation difficulty; Z79.4 Long term (current) use of insulin; Z79.899 Other long term (current) drug therapy
CPT/HCPCS: 36430; 71045; 76700; 80053; 82962; 83036; 84484; 85025; 86850; 86900; 86901; 86920; 87070; 87502; 87811; 93005; 97162; 97166; 99285; G0257; P9016; P9047; Q5106

== ENCOUNTER → 2024-08-21 11:12 | Outpatient (REF) | payer MEDICARE, OTHER, SELFPAY ==
[2024-08-21 14:43] LABS: TSH 4.14 uIU/ml (0.47-4.68)
== END ==
LOC: RCS 11:12
PROVIDERS: ATTENDING PHYSICIAN Nuclear Medicine Nuclear Cardiology; FAMILY PHYSICIAN Family Medicine
DX: I48.0 Paroxysmal atrial fibrillation (principal); I10 Essential (primary) hypertension; R07.9 Chest pain, unspecified
CPT/HCPCS: 36415; 71046; 84443; 93306

== ENCOUNTER → 2024-10-23 14:27 | Outpatient (REF) | payer MEDICARE, OTHER, SELFPAY | LOC: RAD 14:27 | PROVIDERS: ATTENDING PHYSICIAN Physician Assistant; FAMILY PHYSICIAN Family Medicine | DX: R06.02 Shortness of breath (principal) | CPT/HCPCS: 71046 ==

== ENCOUNTER → 2024-11-04 07:05 | Outpatient (REF) | payer MEDICARE, OTHER, SELFPAY ==
[2024-11-04 09:03] LABS: Hematocrit 32.4 % (37.0-47.0); Hemoglobin 10.7 g/dL (12.0-16.0); Mean Corpuscular Hgb 31.8 pg (27.0-31.0); Mean Corpuscular Volume 96.4 fL (81.0-99.0); Mean Platelet Volume 10.1 fL (7.4-10.4); Platelet Count 182 10^3/uL (130-400); Red Blood Cell Count 3.36 10^6/uL (4.20-5.40)
[2024-11-04 10:18] LABS: ALT (SGPT) 41 U/L (0-35); AST (SGOT) 30 U/L (14-36); Albumin 4.3 g/dl (3.5-5.0); Alkaline Phosphatase 145 U/L (38-126); Blood Urea Nitrogen 25 mg/dl (7-17); Calcium 9.5 mg/dl (8.4-10.2); Carbon Dioxide 30 mmol/L (22-30); Chloride 91 mmol/L (98-107); Glucose 146 mg/dl (70-99); Iron 96 ug/dl (37-170); Potassium 4.8 mmol/L (3.5-5.1); Sodium 134 mmol/L (135-145); Total Bilirubin 0.8 mg/dl (0.2-1.3); Total Protein 7.8 g/dl (6.3-8.2); eGFR 11.13
[2024-11-04 10:25] LABS: Hepatitis B Surface Antigen Positive (Negative)
[2024-11-04 10:27] LABS: Percent Saturation 40 % (20-50); Total Iron Binding Capacity 239 ug/dl (265-497)
[2024-11-04 10:44] LABS: Vitamin B12 910 pg/ml (239-931)
[2024-11-06 11:36] LABS: Hepatitis Be Antigen Negative (Negative)
[2024-11-06 12:30] LABS: Hepatitis Be Antibody Positive (Negative)
== END ==
LOC: RAD 07:05
PROVIDERS: ATTENDING PHYSICIAN Specialist; FAMILY PHYSICIAN Family Medicine
DX: B19.10 Unspecified viral hepatitis B without hepatic coma (principal); D64.9 Anemia, unspecified
CPT/HCPCS: 36415; 76700; 80053; 82607; 82728; 83540; 83550; 85027; 86707; 87340; 87350; 87517

== ENCOUNTER 2024-11-06 06:25 | Day surgery (SDC) | payer MEDICARE, OTHER, SELFPAY ==
[2024-11-06 09:07] LABS: Glucose - Point of Care 119 mg/dl (70-99)
== END 2024-11-06 12:11 | disposition home or self-care (01) ==
LOC: GI 06:25
PROVIDERS: ATTENDING PHYSICIAN Specialist
DX: D64.9 Anemia, unspecified (principal); K31.A0 Gastric intestinal metaplasia, unspecified; R11.2 Nausea with vomiting, unspecified; K22.70 Barrett's esophagus without dysplasia; K31.89 Other diseases of stomach and duodenum; K31.A11 Gastric intestinal metaplasia without dysplasia, involving the antrum
CPT/HCPCS: 43239; 88305; 82962; 88342

== ENCOUNTER 2025-03-05 10:27 | Emergency (ER) | payer MEDICARE, OTHER, SELFPAY ==
[2025-03-05 10:33] VITALS: BP 142/52
[2025-03-05 11:02] VITALS: BMI 23.3
[2025-03-05 11:09] VITALS: BP 157/55
--- NOTE | 2025-03-05 11:25 | ED.CVA ---
History of Present Illness
General
Chief Complaint: CVA/TIA Symptoms
Source: patient and family
Time Seen by Provider: 03/05/25 11:05
Onset of Stroke Symptoms
Onset of symptoms known: No
Time pt last seen normal is known: No
History of Present Illness
History of Present Illness:
This patient is a 74-year-old female presents emergency department as referred by her special weapons unit officer who she saw on Sunday. 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
stroke workup to include carotid Dopplers and an echo. Patient went home, and then the next day went to dialysis. She then came to the emergency department today. She denies any symptoms such as new numbness or tingling, double vision, blurry
vision, change in speech, change in balance, headache, neck pain, chest pain, dyspnea, focal weakness, clumsiness, abdominal pain, or other complaints. Patient takes 1 aspirin a day.
Past History
Past History
ED Past Medical History: Arrthythmia, IDDM, Renal failure, Hypothyroidism and Other (Anemia/hepatitis B)
ED Past Surgical History: Other
Patient has exhibited threatening behavior?: No
Social History
Tobacco: Non-smoker
Alcohol: None
Drug: None
Living: with family
Employment: Not employed
Family History
Family History: Other (Noncontributory)
Phy Exam
Physical Exam
Physical Exam:
GENERAL: Alert , in no apparent distress
EYE: pupils equal and reactive , EOMI, no nystagmus, no photophobia, visual blevins intact
NECK: Supple, no significant adenopathy.
ENT: o/p clr, mmm.
CARDIAC: Regular rate and rhythm .
LUNGS: Clear breath sounds bilaterally, no acute respiratory distress, no wheezes/rales/rhonchi
ABDOMEN: Soft, without focal tenderness, no r/g, no cvat
NEUROLOGICAL: Alert and oriented, no focal neuro deficits, Motor 5 out of 5, sensory intact, cranial nerves II through XII normal, gwsmps-yg-edod normal, NIH equal to 0
SKIN: Warm and dry, skin intact.
MUSCULOSKELETAL: No edema, well perfused.
PSYCH: Normal and appropriate interaction.
Course
Orders/Labs/Results
Orders:
Orders
03/05/25 11:29
Electrocardiogram (*1) Stat
Reason for Study: Other
Other Reason for Exam: neuro symptoms
CT Head W/o Iv Contrast Urgent
Comment:
Reason For Exam: reported hollenhurst plaques
Cardiac Monitoring- Treatment ONCE
EKG- Treatment ONCE
03/05/25 11:45
Complete Blood Count/No Diff Urgent
Troponin I Urgent
03/05/25 12:37
Comprehensive Metabolic Panel Urgent
03/05/25 14:10
PT/INR [Prothrombin Time] Urgent
03/05/25 14:43
US Carotid [US Cerebrovascular] Urgent
Comment:
Reason For Exam: retinal abnl
03/05/25 15:50
Potassium Chloride [KCl] 20 meq PO NOW STA
Abnormal Lab Results
03/05/25 03/05/25 03/05/25
11:45 12:37 14:10
RBC 3.62 L 10^6/uL
(4.20-5.40)
Hgb 11.4 L g/dL
(12.0-16.0)
Hct 33.6 L %
(37.0-47.0)
MCH 31.5 H pg
(27.0-31.0)
RDW 14.8 H %
(11.5-14.5)
PT 16.1 H Sec
(11.4-14.6)
Sodium 133 L mmol/L
(135-145)
Potassium 3.3 L mmol/L
(3.5-5.1)
Chloride 92 L mmol/L
(98-107)
Carbon Dioxide 33 H mmol/L
(22-30)
BUN 32 H mg/dl
(7-17)
Creatinine 3.8 H mg/dL
(0.6-1.0)
Glucose 113 H mg/dl
(70-99)
Calcium 7.7 L mg/dl
(8.4-10.2)
AST 111 H U/L
(14-36)
ALT 182 H U/L
(0-35)
Troponin I 0.037 H* ng/ml
03/05/25 11:45
03/05/25 12:37
Vital Signs
Initial and Last Documented VS:
Initial Vital Signs
Temp Pulse Resp BP Pulse Ox
98.4 F 58 16 142/52 98
03/05/25 10:33 03/05/25 10:33 03/05/25 10:33 03/05/25 10:33 03/05/25 10:33
Last Documented Vital Signs
Temp Pulse Resp BP Pulse Ox
98.4 F 71 18 177/60 98
03/05/25 10:33 03/05/25 16:13 03/05/25 16:13 03/05/25 16:13 03/05/25 16:13
*Pulse Oximetry
SaO2: 99
Oxygen Mode of Delivery: Room air
Patient hypoxic: no
*Critical Care Note
Total Time (30-74mins, 75-104mins- exclusive of procedures): Not Applicable
Update Note
Update Note:
Patient presents to the Emergency Department with abnl retinal exam
Number and Complexity of Problems Addressed at the Encounter
� Chronic conditions affecting care:
� Acute Exacerbation and/or Progression of Chronic Illness:
� Differential Diagnosis includes:but not limited to tia, cva, cad, etc etc
Amount and/or Complexity of Data to be Reviewed and Analyzed
� I performed an independent evaluation of and my interpretation is:
EKG: Read by me, normal sinus rhythm, normal rate, no acute ischemia
CT:1. No acute intracranial abnormalities appreciated.
2. Mild atrophy and mild chronic small vessel change.
Xrays:
Laboratory Studies: Nonspecific troponin elevation at 0.037. Patient without acute ECG changes or chest
Other:
� Review of other/old records reveals: Report from eye doctor reviewed by me in which he describes Hollenhorst plaques OS noted on exam.
� Clinical information was obtained by an independent historian:son who is at bedside and serves as interpretor at her request
� Prescriptions/Medications Considered but not given:
� Further testing considered but not performed:
Risk of Complications and/or Morbidity or Mortality of Patient Management
� Social determinants of health affecting care:
� Discussion with other providers (PCP, Hospitalists, Consultants, etc):
� Escalation of care including admission/observation vs risk of discharge considered: Long discussion with patient's son. He did show me paperwork from the eye doctor just 2 days ago. However, he also now states that patient
was admitted to [facility] this summer for bradycardia associated with hyponatremia and hyperkalemia. She had an extensive workup there including an echo. I then contacted her [employer] office to fax me most recent visit from December 23 in
which it states that her's stress test is without ischemia and recent echo shows preserved LV function with moderate MR. He would very much not like patient to be admitted/overnight in the hospital. The patient is anticoagulated. She is at
carotid ultrasound now. If that does not show critical stenosis, it would be reasonable for patient to have an outpatient follow-up, especially given she is asymptomatic.
ED Attending Note
-
Portions of this chart may have been created with voice recognition software.� Occasional wrong word or��sound alike� substitutions may have occurred due to the inherent limitations of voice recognition software.
Discharge Plan
Departure
Patient Disposition: Home (Routine Discharge)
Admit to: Telemetry
Patient with high blood pressure during this ER visit?: Yes
Condition: Fair
Discharge Problem:
Hollenhorst plaque
Instructions: BLOOD PRESSURE
Prescriptions:
No Action
simvastatin 20 MG tablet
20 mg PO HS
cholecalciferol (vitamin D3) 1,000 UNITS tablet
1,000 units PO DAILY 30 Days Qty: 30 0RF
insulin glargine U-300 conc [Toujeo SoloStar U-300 Insulin] 300 UNIT/ML insulin pen
6 unit SC HSPRN PRN (Reason: Diabetes)
tenofovir disoproxil fumarate 300 MG tablet
300 mg PO WE
omeprazole 40 MG capsule,delayed release(DR/EC)
40 mg PO DAILY
gabapentin 100 MG capsule
100 mg PO MOWEFR
Patient Comments:
lanthanum 500 mg Tablet,Chewable
500 mg PO AC
levothyroxine 75 mcg Tablet
75 mcg PO DAILY
amiodarone [Pacerone] 200 mg Tablet
200 mg PO DAILY Qty: 30 0RF
acetaminophen 325 mg Tablet
650 mg PO Q6HPRN PRN (Reason: mild pain/ fever>100.5F) Qty: 10 0RF
carvedilol 6.25 mg Tablet
6.25 mg PO BID
docusate sodium 100 mg capsule
100 mg PO DAILYPRN PRN (Reason: constipation)
nortriptyline 10 mg Capsule
10 mg PO HS
fluticasone propionate 50 mcg/actuation [place],Suspension
1 spray INTRANASAL DAILYPRN PRN (Reason: allergies)
insulin aspart U-100 [Novolog FlexPen U-100 Insulin] 300 UNITS/3 ML insulin pen
3 - 5 sliding scale dose SC AC
artificial tear(hzdyc-bvq-rpm) 0.1-0.3-0.2 % Drops
1 drp BOTH EYES DAILYPRN PRN (Reason: dry eyes)
amlodipine [Norvasc] 5 mg Tablet
5 mg PO DAILY
Eliquis 2.5 mg Tablet
2.5 mg PO BID
Referrals:
Anselmo Pathak MD [Family Provider, Family Practice] - Follow up in 2-3 days
Aravind Tran MD [Active, Neurology] - Next open appointment
Activity Restrictions/Additional Instructions:
PLEASE SEE YOUR DOCTOR IN CLOSE FOLLOW UP. IF YOU DEVELOP NUMBNESS, WEAKNESS, CHANGE IN VISION, CHANGE IN SPEECH, DIZZINESS, SEVERE HEADACHE, FACIAL DROOP OR OTHER WORRISOME SIGNS, GO TO THE ER IMMEDIATELY!
Interventions
Interventions:
*Risk Screen - Suicide Last Done: 03/05/25 10:33
*General Assessment Last Done: 03/05/25 10:59
*Neglect/Abuse Screening Last Done: 03/05/25 10:33
*ED- Fall Risk Assessment Last Done: 03/05/25 10:59
*ED COVID-19 Vaccine History Last Done: 03/05/25 10:59
*ED Influenza Vaccine History Last Done: 03/05/25 10:59
*Nursing Disposition Last Done: 03/05/25 16:07
ED- Pulmonary Assessment Last Done: 03/05/25 11:03
ED- Neurological Assessment Last Done: 03/05/25 11:16
ED- Cardiac Assessment Last Done: 03/05/25 11:03
Discharge Date and Time
Discharge Date/Time: 03/05/25 16:14
Print Language: Sinhala
[2025-03-05 12:09] LABS: Hematocrit 33.6 % (37.0-47.0); Hemoglobin 11.4 g/dL (12.0-16.0); Mean Corp Hgb Conc. 33.9 g/dL (33.0-37.0); Mean Corpuscular Volume 92.8 fL (81.0-99.0); Platelet Count 144 10^3/uL (130-400); Red Cell Dist. Width 14.8 % (11.5-14.5)
[2025-03-05 12:34] VITALS: BP 166/53
[2025-03-05 12:44] LABS: Troponin I 0.037 ng/ml
[2025-03-05 13:00] VITALS: BP 179/59
[2025-03-05 13:30] LABS: ALT (SGPT) 182 U/L (0-35); AST (SGOT) 111 U/L (14-36); Albumin 3.8 g/dl (3.5-5.0); Alkaline Phosphatase 119 U/L (38-126); Blood Urea Nitrogen 32 mg/dl (7-17); Calcium 7.7 mg/dl (8.4-10.2); Carbon Dioxide 33 mmol/L (22-30); Chloride 92 mmol/L (98-107); Estimated Creatinine Clearance 11 ml/min; Glucose 113 mg/dl (70-99); Potassium 3.3 mmol/L (3.5-5.1); Sodium 133 mmol/L (135-145); Total Protein 7.1 g/dl (6.3-8.2); eGFR 11.84
--- NOTE | 2025-03-05 13:44 | HPS.HSE ---
Addendum entered and electronically signed by Anders Barba MD 03/05/25 19:17:
This is an addendum to H&P written by Ashley Youngblood on 03/05/2025. �Patient seen and examined independently with LUMP RECEIVER.
74-year-old female past medical history of chronic anemia, ESRD, chronic HFpEF, paroxysmal atrial fibrillation on Eliquis, hypertension, type 2 diabetes, possible diabetic neuropathy, chronic HBV, hypothyroidism, GERD, presenting due to referral by
her fox farmer. �2 days ago she was noted to have Hollenhorst plaques and was advised to come to the emergency room for stroke workup including carotid Dopplers and echo. �She went home and the next day went to dialysis. �She came to emergency
room today.
She denies any numbness or tingling, double vision, blurry vision, change in speech, change in balance, headache, neck pain, chest pain, shortness of breath, focal weakness abdominal pain or other complaints.
Vital signs unremarkable.
Labs show stable hemoglobin 11.4. �Potassium 3.3. �There is increase in transaminitis AST 111, ALT 182. Recent echo in December of this year performed at Dr. Kebede's office shows Moderate MR.�
CT head shows no acute intracranial abnormality.
Patient with asymptomatic Hollenhorst plaques on ophthalmology examination. Carotid US shows Less 50 percent occlusion bilaterally. Patient had recent echo showing moderate MR. Patient already on Eliquis. Patient can be discharged. Outpatient
followup with primary and hepatology for transaminitis.� Potassium repletion.�
Original Note:
Family Physician
-
Family Physician: Anselmo Pathak
Chief Complaint
-
Sent by Optho for Hollenhorst plaques in eyes asymptomatic
History of Present Illness
74-year-old female referred by ophthalmology that she saw on Sunday 2 days ago due to Hollenhorst plaques she was advised for stroke workup including carotid Dopplers and echo patient reports she went home went to dialysis yesterday then came to
the ER today. She denies headache, blurred vision, headache, numbness, tingling, speech difficulty, weakness, chest pain, palpitations, cough, shortness of breath, abdominal pain, nausea, vomiting, diarrhea, urinary symptoms. Her grandson at
bedside states that she was seen at [place] in December had stroke workup for confusion also had bradycardia secondary to hyperkalemia from eating peaches he reports she had echo at that time and follow-up with Dr. Kebede. Her grandson would prefer
that she go home and have follow-up outpatient carotid ultrasound as she declines in the hospital due to her moderate dementia. She is on Eliquis for paroxysmal A-fib, other history includes ESRD on dialysis Sunday, chronic HBV,
chronic transaminitis, chronic troponin elevation, anemia secondary to ESRD, CHF post blood transfusion August 2024, chronic CHF preserved EF, HTN, DM 2, diabetic neuropathy, hypothyroidism, GERD, dementia/moderate
Medical History
Past Medical History
Past Medical History: Reports Other
Additional Past Medical History:
paroxysmal A-fib
ESRD on dialysis Sunday
chronic HBV
chronic transaminitis
chronic troponin elevation
anemia secondary to ESRD
CHF post blood transfusion August 2024
chronic CHF preserved EF
HTN,
DM 2
diabetic neuropathy
hypothyroidism
GERD
dementia/moderate
Chronic ambulatory dysfunction stands to transfer only otherwise uses wheelchair
Past Surgical History: Reports Other
Additional Past Surgical History:
Left upper extremity AV fistula
Pacemaker
Social History
Tobacco: Non-smoker
Alcohol: None
Drug: None
Personal: Single
Living: With Family
Employment: Retired
Family History
Family History: Not pertinent
Allergies / Home Medications
Allergies reflects when Allergies were last updated in [employer].
Home Medications with original date entered in [employer]
Allergy/Medication List:
Allergies
Allergy/AdvReac Type Severity Reaction Status Date / Time
No Known Allergies Allergy Verified 10/02/25 10:31
Home Medications
simvastatin 20 mg tablet 20 mg PO HS High Cholesterol 07/23/17
cholecalciferol (vitamin D3) 25 mcg (1,000 unit) tablet 1,000 units PO DAILY 30 days ##30 08/04/17
insulin glargine U-300 conc 300 unit/mL (1.5 mL) subcutaneous pen (Toujeo SoloStar U-300 Insulin) 6 unit SC HSPRN PRN Diabetes 08/16/17
omeprazole 40 mg capsule,delayed release 40 mg PO DAILY Gastrointestinal Issue 03/29/18
tenofovir disoproxil fumarate 300 mg tablet 300 mg PO WE Hepatitis B 03/29/18
gabapentin 100 mg capsule 100 mg PO MOWEFR Neurological Condition 01/02/19
lanthanum 500 mg chewable tablet 500 mg PO AC Kidney Disease 01/29/23
levothyroxine 75 mcg tablet 75 mcg PO DAILY Thyroid 01/31/23
amiodarone 200 mg tablet (Pacerone) 200 mg PO DAILY #30 tabs 02/08/23
acetaminophen 325 mg tablet 650 mg (2 x 325 mg) PO Q6HPRN PRN mild pain/ fever>100.5F #10 tabs 02/09/23
carvedilol 6.25 mg tablet 6.25 mg PO BID Blood Pressure 02/06/24
docusate sodium 100 mg capsule 100 mg PO DAILYPRN PRN constipation 02/06/24
artificial tears(kllfzdx-vgtmaatn-[id number]) 0.1 %-0.3 %-0.2 % eye drops 1 drp BOTH EYES DAILYPRN PRN dry eyes 08/07/24
fluticasone propionate 50 mcg/actuation nasal spray,suspension 1 spray intranasal DAILYPRN PRN allergies 08/07/24
insulin aspart U-100 100 unit/mL (3 mL) subcutaneous pen (Novolog FlexPen U-100 Insulin aspart) 3 - 5 sliding scale dose SC AC Diabetes 08/07/24
nortriptyline 10 mg capsule 10 mg PO HS depression/sleep 08/07/24
amlodipine 5 mg tablet (Norvasc) 5 mg PO DAILY 03/05/25
apixaban 2.5 mg tablet (Eliquis) 2.5 mg PO BID 03/05/25
Review of Systems
-
History Source: Family (Grandson at bedside translating as patient speaks [place] a dialect of Brazilian cannot understand Brazilian)
A 12 point ROS was completed and negative except as noted: Yes
Constitutional: Denies Fever, Fatigue or Chills
EENT: Reports Other (No blurred vision eye pain or floaters); Denies Sore Throat or Runny Nose
Respiratory: Denies Cough or Trouble Breathing
Cardiac: Denies Chest Pain, Diaphoresis, Palpitations or Syncope
Abdomen/GI: Denies Abdominal Pain, Nausea, Vomiting, Diarrhea or Constipated
: Denies Dysuria
Musculoskeletal: Denies Joint Pain or Edema
Skin: Denies Itching or Rash
Neurological: Reports Weakness (Generalized uses wheelchair); Denies Dizzy or Headache
Endocrine: Reports No Symptoms
Hematologic/Lymphatic: Reports No Symptoms
Psych: Reports Calm
Physical Exam
Vital Signs
Vital Signs
Temp Pulse Resp BP Pulse Ox
98.4 F 62 17 179/59 98
03/05/25 10:33 03/05/25 13:00 03/05/25 13:00 03/05/25 13:00 03/05/25 13:00
Physical Exam
General: Comfortable; No Pain, Fever or Chills
HEENT: NormoCephalic, Anicteric, Moist mucous membranes, PERRLA, [place] Conjunctivae and No Ptosis
Respiratory: Clear; No Wheezes, Rales or Rhonchi
Cardiac: S1/S2, Regular Rhythm and Murmur (2 out of 6 systolic); No Rub, Gallop or Peripheral Edema
Breast: Deferred by me
GI: Soft, Non Tender, Non Distended, Normal Bowel Sounds and No Hepatosplenomegaly
Musculoskeletal: No Clubbing, No Cyanosis and No Edema
Skin: Warm, Dry and Other (Left upper extremity AV fistula positive thrill); No Rash
Neuro: Awake, Alert, Oriented (To grandson he states she is not normally oriented to president or year as she has memory problems), Cranial Nerves Intact and No Sensory Deficits; No Facial Droop, Tremors or Sedated
Psych: Calm
Laboratory Results
-
03/05/25 11:45
03/05/25 12:37
Laboratory Results
Total Bilirubin 0.5 mg/dl (0.2-1.3) 03/05/25 12:37
AST 111 U/L (14-36) H 03/05/25 12:37
ALT 182 U/L (0-35) H 03/05/25 12:37
Alkaline Phosphatase 119 U/L (38-126) 03/05/25 12:37
Troponin I 0.037 ng/ml H* 03/05/25 11:45
Data Reviewed
-
Lab Data: Labs Reviewed by me
Impression/Plan
-
Medical consultation
#Hollenhorst plaques asymptomatic
Patient had extensive evaluation [facility] December 2024 for CVA rule out and bradycardia
- Check 2D echo
- CT head negative
-Follow-up with outpatient ophthalmology if any visual issues
2D echo report from December [address] Kebede's office revealed echo shows preserved LV function with moderate MR, stress test without ischemia
Carotid ultrasound:Small amount of calcified plaque within BOTH carotid bulbs and proximal internal carotid arteries. Velocity profile consistent with less than 50% stenoses bilaterally.
Antegrade flow within the vertebral arteries.
#Chronic troponin elevation
Troponin 0.037
EKG: NSR 60 bpm, prolonged QTc 550 MS
#Prolonged QTc 550 MS
Follow in a.m.
-Hold prolonged QTc agents
#Acute hypokalemia
K3.3 will give KCl 20 mEq
#Acute transaminitis -worsening
#History of chronic HBV
AST 111, ALT 182
Follow CMP
- Continue tenofovir
- Follow-up with outpatient I discussed this with patient's grandson hepatology
#ESRD
Patient completed dialysis yesterday Sunday
Creat 3.8
-Continue lanthanum
-
#History of anemia 2/2 ESRD
-Required 2 units blood transfusion with postinfusion pulm CHF requiring dialysis August 2024
- Hgb stable 11.4
#Chronic CHF preserved EF
I/O, daily weights
Continue Coreg
#Paroxysmal A-fib
Continue amiodarone, Eliquis 2.5 mg twice daily
#HTN
BP 179/59
Continue amlodipine
DM 2
Accu-Cheks with SSI, check HgbA1c
- Continue Toujeo or equivalent 6 units SQ at bedtime, sliding scale insulin
Diabetic neuropathy
Continue gabapentin, nortriptyline
Hypothyroidism
Continue levothyroxine
GERD
Continue omeprazole
DVT prophylaxis
Continue [employer] Eliquis
Full code
[2025-03-05 14:00] VITALS: BP 188/60
[2025-03-05 14:33] LABS: INR 1.24; PT 16.1 Sec (11.4-14.6)
[2025-03-05] MEDS: KCL 20 MEQ PO (16:10)
[2025-03-05 16:13] VITALS: BP 177/60
== END 2025-03-05 16:14 | disposition home or self-care (01) ==
LOC: EMR 10:27
PROVIDERS: Clinical Nurse Specialist Family Health; EMERGENCY PHYSICIAN Emergency Medicine; FAMILY PHYSICIAN Family Medicine
DX: H34.212 Partial retinal artery occlusion, left eye (principal); E87.6 Hypokalemia; R74.01 Elevation of levels of liver transaminase levels; R79.89 Other specified abnormal findings of blood chemistry; R94.31 Abnormal electrocardiogram [ECG] [EKG]; E11.40 Type 2 diabetes mellitus with diabetic neuropathy, unspecified; E11.22 Type 2 diabetes mellitus with diabetic chronic kidney disease; I13.2 Hypertensive heart and chronic kidney disease with heart failure and with stage 5 chronic kidney disease, or end stage renal disease; N18.6 End stage renal disease; I50.32 Chronic diastolic (congestive) heart failure; D63.1 Anemia in chronic kidney disease; I48.0 Paroxysmal atrial fibrillation; I65.23 Occlusion and stenosis of bilateral carotid arteries; I34.0 Nonrheumatic mitral (valve) insufficiency; F03.B0 Unspecified dementia, moderate, without behavioral disturbance, psychotic disturbance, mood disturbance, and anxiety; B18.1 Chronic viral hepatitis B without delta-agent; E03.9 Hypothyroidism, unspecified; K21.9 Gastro-esophageal reflux disease without esophagitis; Z79.01 Long term (current) use of anticoagulants; Z79.4 Long term (current) use of insulin; Z99.2 Dependence on renal dialysis; Z95.0 Presence of cardiac pacemaker
CPT/HCPCS: 99284; 70450; 80053; 84484; 85027; 85610; 93005; 93880